=== PATIENT | male | born 1965 | race Two or more races ===

== ENCOUNTER 2022-03-26 02:25 | Inpatient (IN) | payer MEDICAID ==
[~2022-03-26] VITALS: Ht 170.2 cm; Wt 124.9 kg
[2022-03-26] MEDS ORDERED: SODIUM CHLORIDE 0.9% 1,000 ML IV ONE (03:30)
[2022-03-26 03:41] LABS: Basophils # (auto) 0.4 10 ^3/uL (0-0.2); Basophils % (auto) 3.9 % (0.0-2.0); Eosinophils # (auto) 0.1 10 ^3/uL (0-0.8); Eosinophils % (auto) 0.9 % (0.0-7.0); Hematocrit 30.4 % (41.0-53.0); Hemoglobin 9.9 g/dL (13.5-17.5); Lymphocytes # (auto) 0.7 10 ^3/uL (0.4-5.4); Lymphocytes % (auto) 6.5 % (10.0-50.0); Mean Corpuscular Hemoglobin 27.4 pg (28.0-32.0); Mean Corpuscular Hgb Conc. 32.6 g/dL (32.0-36.0); Monocytes # (auto) 0.8 10 ^3/uL (0-1.3); Monocytes % (auto) 7.6 % (0.0-12.0); Neutrophils # (auto) 8.3 10 ^3/uL (1.6-8.6); Neutrophils % (auto) 81.1 % (37.0-80.0); Nucleated Red Blood Cells % 0.2 %; Red Blood Cells 3.63 10^6/uL (4.5-5.90); Red Cell Distribution Width 18.8 % (11.8-14.3); White Blood Cell 10.2 10^3/uL (4.4-10.8)
[2022-03-26 04:02] LABS: Albumin 2.9 g/dL (3.4-5.0); Calcium 9.5 mg/dL (8.5-10.1); Potassium 4.4 mmol/L (3.5-5.1)
[2022-03-26 04:05] LABS: BUN/Creatinine Ratio 14.3; Bilirubin, Total 0.6 mg/dL (0.2-1.0)
[2022-03-26 06:57] LABS: Urine Bacteria NONE SEEN /hpf (None Seen); Urine Blood Negative /uL (Negative); Urine Hyaline Cast MOD /lpf (0 - 2); Urine Specific Gravity 1.016 (1.001-1.035); Urine WBC 3 /hpf (0 - 3)
[2022-03-26] MEDS ORDERED: MORPHINE SULFATE INJ 2 MG/ml SYRG IV PRN (07:45)
[2022-03-26] MEDS ORDERED: DEXTROSE (50%) 50ML SYRG IV PRN (07:45)
[2022-03-26] MEDS ORDERED: ONDANSETRON HCL 4 MG/2 ML VIAL IV PRN (07:45)
[2022-03-26] MEDS ORDERED: NITROGLYCERIN 0.4 MG SL TAB SL PRN (07:45)
[2022-03-26] MEDS ORDERED: ACETAMINOPHEN 325 MG TAB PO PRN (07:45)
[2022-03-26] MEDS ORDERED: DOCUSATE SOD 100 MG CAP PO PRN (07:45)
[2022-03-26] MEDS ORDERED: SODIUM CHLORIDE 0.9% 1,000 ML IV SCH (07:45)
[2022-03-26] MEDS: PIPERACILLIN-TAZOB 2.25GM 50 ML IV SCH ×2 (09:11→17:24)
[2022-03-26] MEDS: PANTOPRAZOLE 40 MG/10 ML VIAL INJ IV SCH (10:48)
[2022-03-26] MEDS: HEPARIN SODIUM (PORCINE) 5000 UNITS/ML 1ML VIAL SC SCH ×2 (10:51→22:29)
[2022-03-26] MEDS: InsuLIN REG 1unit/0.01ml Soln (100units/ml) SC SCH ×3 (12:19→22:00)
[2022-03-26] MEDS: ACCU-CHEK COMFORT CURVE STRIP VI SCH ×3 (12:19→22:07)
[2022-03-26] MEDS: SODIUM CHLORIDE 0.9% 1,000 ML IV SCH ×2 (13:35→22:28)
[2022-03-26 13:39] LABS: Albumin 2.7 g/dL (3.4-5.0); Calcium 9.3 mg/dL (8.5-10.1); Potassium 4.1 mmol/L (3.5-5.1)
[2022-03-26 13:43] LABS: BUN/Creatinine Ratio 15.9; Bilirubin, Total 0.6 mg/dL (0.2-1.0); Total Protein 6.7 g/dL (6.4-8.2)
[2022-03-26 17:00] LABS: Alcohol, Urine < 3.0 mg/dL (0-10); Amphetamine Screen, Urine NEGATIVE (NEGATIVE); Barbiturate Scree,Urine NEGATIVE (NEGATIVE); Benzodiazephine Screen, Urine POSITIVE (NEGATIVE); Cannabinoid Screen, Urine NEGATIVE (NEGATIVE); Cocaine Screen, Urine NEGATIVE (NEGATIVE); Opiate Scree,Urine NEGATIVE (NEGATIVE); Phencyclidine Screen, Urine NEGATIVE (NEGATIVE)
[2022-03-27] MEDS: PIPERACILLIN-TAZOB 2.25GM 50 ML IV SCH ×3 (02:30→17:37)
[2022-03-27] MEDS: SODIUM CHLORIDE 0.9% 1,000 ML IV SCH ×3 (02:30→23:29)
[2022-03-27] MEDS: InsuLIN REG 1unit/0.01ml Soln (100units/ml) SC SCH ×4 (07:00→21:59)
[2022-03-27 07:51] LABS: Basophils # (auto) 0.1 10 ^3/uL (0-0.2); Basophils % (auto) 0.9 % (0.0-2.0); Eosinophils # (auto) 0.1 10 ^3/uL (0-0.8); Eosinophils % (auto) 1.1 % (0.0-7.0); Hematocrit 29.9 % (41.0-53.0); Hemoglobin 9.7 g/dL (13.5-17.5); Lymphocytes # (auto) 0.6 10 ^3/uL (0.4-5.4); Lymphocytes % (auto) 7.5 % (10.0-50.0); Mean Corpuscular Hemoglobin 27.8 pg (28.0-32.0); Mean Corpuscular Hgb Conc. 32.5 g/dL (32.0-36.0); Mean Corpuscular Volume 85.7 fL (80.0-100.0); Monocytes % (auto) 11.4 % (0.0-12.0); Neutrophils # (auto) 6.7 10 ^3/uL (1.6-8.6); Neutrophils % (auto) 79.1 % (37.0-80.0); Nucleated Red Blood Cells % 0.2 %; Red Blood Cells 3.48 10^6/uL (4.5-5.90); Red Cell Distribution Width 19.2 % (11.8-14.3); White Blood Cell 8.5 10^3/uL (4.4-10.8)
[2022-03-27] MEDS: ACCU-CHEK COMFORT CURVE STRIP VI SCH ×4 (07:55→21:57)
[2022-03-27 08:09] LABS: Potassium 3.9 mmol/L (3.5-5.1)
[2022-03-27 08:17] LABS: Albumin 2.6 g/dL (3.4-5.0); BUN/Creatinine Ratio 18.6; Bilirubin, Total 0.6 mg/dL (0.2-1.0); Calcium 9.4 mg/dL (8.5-10.1); Total Protein 6.6 g/dL (6.4-8.2)
[2022-03-27] MEDS: PANTOPRAZOLE 40 MG/10 ML VIAL INJ IV SCH (10:20)
[2022-03-27] MEDS: HEPARIN SODIUM (PORCINE) 5000 UNITS/ML 1ML VIAL SC SCH ×2 (10:25→22:01)
[2022-03-27] MEDS: HYDROcodone-ACET 5/325MG TAB PO PRN (13:36)
[2022-03-27 13:40] VITALS: BP 106/63
[2022-03-27] MEDS ORDERED: FURO40TA4 PO (14:13)
[2022-03-27] MEDS ORDERED: ZIPR60CA7 PO (14:13)
[2022-03-27] MEDS ORDERED: CLOB0.059 TOP (14:13)
[2022-03-27] MEDS ORDERED: ESCI-34 PO (14:13)
[2022-03-27] MEDS ORDERED: SPIR50TA5 PO (14:13)
[2022-03-27] MEDS ORDERED: METH500T22 PO (14:13)
[2022-03-27] MEDS ORDERED: KETO2SHA5 TOP (14:13)
[2022-03-27] MEDS ORDERED: POTA1TAB4 (14:13)
[2022-03-27] MEDS ORDERED: ASPI-325 PO (14:13)
[2022-03-27] MEDS ORDERED: METO2.5T PO (14:13)
[2022-03-27] MEDS ORDERED: ISOS1TAB28 PO (14:13)
[2022-03-27] MEDS ORDERED: GABA300C10 PO (14:13)
[2022-03-27] MEDS ORDERED: CELE1CAP8 PO (14:13)
[2022-03-27] MEDS ORDERED: LIDO5CRE14 TOP (14:13)
[2022-03-27] MEDS ORDERED: ACET-6 PO (14:13)
[2022-03-27] MEDS ORDERED: ALLO100T PO (14:13)
[2022-03-27] MEDS ORDERED: NITR0.4D11 (14:13)
[2022-03-27] MEDS ORDERED: ZIPR60CA PO (14:13)
[2022-03-27] MEDS ORDERED: FAMO-12 PO (14:13)
[2022-03-27] MEDS ORDERED: TAMS0.4C36 PO (14:13)
[2022-03-27] MEDS ORDERED: ALPRTAB PO (14:13)
[2022-03-27] MEDS ORDERED: TRAZ100T3 PO (14:13)
[2022-03-27] MEDS ORDERED: CARV6.2551 PO (14:13)
[2022-03-27 16:29] VITALS: BP 101/61
[2022-03-27 22:30] VITALS: BP 96/52
[2022-03-27] MEDS: NYSTATIN TOPICAL POWDER 15GM TOP SCH (23:10)
[2022-03-28] MEDS: PIPERACILLIN-TAZOB 2.25GM 50 ML IV SCH ×3 (00:46→17:06)
[2022-03-28] MEDS: SODIUM CHLORIDE 0.9% 1,000 ML IV SCH ×3 (05:00→21:00)
[2022-03-28 05:05] VITALS: BP 99/37
[2022-03-28] MEDS: ACCU-CHEK COMFORT CURVE STRIP VI SCH ×4 (06:37→22:01)
[2022-03-28] MEDS: InsuLIN REG 1unit/0.01ml Soln (100units/ml) SC SCH ×4 (06:38→22:00)
[2022-03-28 08:52] LABS: Potassium 3.9 mmol/L (3.5-5.1)
[2022-03-28 09:11] VITALS: BP 101/38
[2022-03-28 09:14] LABS: BUN/Creatinine Ratio 21.9; Calcium 9.4 mg/dL (8.5-10.1)
[2022-03-28] MEDS: PANTOPRAZOLE 40 MG/10 ML VIAL INJ IV SCH (09:18)
[2022-03-28] MEDS: HEPARIN SODIUM (PORCINE) 5000 UNITS/ML 1ML VIAL SC SCH ×2 (09:19→22:02)
[2022-03-28] MEDS: NYSTATIN TOPICAL POWDER 15GM TOP SCH ×2 (10:33→22:01)
[2022-03-28 12:49] VITALS: BP 103/31
[2022-03-28 16:58] VITALS: BP 106/53
[2022-03-28] MEDS: HYDROcodone-ACET 5/325MG TAB PO PRN (17:05)
[2022-03-28 22:00] VITALS: BP 91/42
[2022-03-29] MEDS: PIPERACILLIN-TAZOB 2.25GM 50 ML IV SCH ×3 (00:48→17:42)
[2022-03-29] MEDS: SODIUM CHLORIDE 0.9% 1,000 ML IV SCH ×2 (04:11→17:44)
[2022-03-29 05:00] VITALS: BP 99/59
[2022-03-29] MEDS: ACCU-CHEK COMFORT CURVE STRIP VI SCH ×4 (06:29→22:22)
[2022-03-29] MEDS: InsuLIN REG 1unit/0.01ml Soln (100units/ml) SC SCH ×4 (06:30→22:00)
[2022-03-29 09:00] VITALS: BP 95/59
[2022-03-29] MEDS: PANTOPRAZOLE 40 MG/10 ML VIAL INJ IV SCH (10:53)
[2022-03-29] MEDS: HEPARIN SODIUM (PORCINE) 5000 UNITS/ML 1ML VIAL SC SCH ×2 (10:53→22:22)
[2022-03-29] MEDS: NYSTATIN TOPICAL POWDER 15GM TOP SCH ×2 (10:54→22:21)
[2022-03-29 13:03] VITALS: BP 105/63
[2022-03-29] MEDS ORDERED: BUMETANIDE 2.5mg/10ml (0.25 mg/ml) INJ IV ONE (14:30)
[2022-03-29 16:30] VITALS: BP 96/58
[2022-03-29 17:31] LABS: BUN/Creatinine Ratio 34.9; Calcium 9.7 mg/dL (8.5-10.1); Potassium 3.6 mmol/L (3.5-5.1)
[2022-03-29 22:00] VITALS: BP 110/60
[2022-03-29] MEDS: HYDROcodone-ACET 5/325MG TAB PO PRN (22:23)
[2022-03-30] MEDS: PIPERACILLIN-TAZOB 2.25GM 50 ML IV SCH ×2 (01:01→09:28)
[2022-03-30 05:00] VITALS: BP 99/44
[2022-03-30] MEDS: ACCU-CHEK COMFORT CURVE STRIP VI SCH ×4 (06:33→22:13)
[2022-03-30] MEDS: InsuLIN REG 1unit/0.01ml Soln (100units/ml) SC SCH ×4 (06:33→22:00)
[2022-03-30 08:05] VITALS: BP 105/68
[2022-03-30] MEDS: PANTOPRAZOLE 40 MG/10 ML VIAL INJ IV SCH (09:34)
[2022-03-30] MEDS: HYDROcodone-ACET 5/325MG TAB PO PRN ×3 (09:36→21:52)
[2022-03-30] MEDS: HEPARIN SODIUM (PORCINE) 5000 UNITS/ML 1ML VIAL SC SCH ×2 (09:46→21:52)
[2022-03-30 10:46] LABS: Basophils # (auto) 0.1 10 ^3/uL (0-0.2); Basophils % (auto) 0.8 % (0.0-2.0); Eosinophils # (auto) 0.1 10 ^3/uL (0-0.8); Eosinophils % (auto) 1.4 % (0.0-7.0); Hematocrit 29.5 % (41.0-53.0); Hemoglobin 9.6 g/dL (13.5-17.5); Lymphocytes # (auto) 0.5 10 ^3/uL (0.4-5.4); Lymphocytes % (auto) 4.7 % (10.0-50.0); Mean Corpuscular Hemoglobin 27.4 pg (28.0-32.0); Mean Corpuscular Hgb Conc. 32.5 g/dL (32.0-36.0); Mean Corpuscular Volume 84.3 fL (80.0-100.0); Monocytes # (auto) 0.9 10 ^3/uL (0-1.3); Monocytes % (auto) 9.1 % (0.0-12.0); Neutrophils # (auto) 8.2 10 ^3/uL (1.6-8.6); Nucleated Red Blood Cells % 0.1 %; Red Cell Distribution Width 19.1 % (11.8-14.3); White Blood Cell 9.8 10^3/uL (4.4-10.8)
[2022-03-30 11:26] LABS: BUN/Creatinine Ratio 38.1
[2022-03-30 11:38] LABS: Calcium 9.7 mg/dL (8.5-10.1)
[2022-03-30] MEDS: NYSTATIN TOPICAL POWDER 15GM TOP SCH ×2 (12:00→22:13)
[2022-03-30 12:05] VITALS: BP 99/56
[2022-03-30] MEDS: SODIUM CHLORIDE 0.9% 1,000 ML IV SCH (14:30)
[2022-03-30 16:00] VITALS: BP 115/56
[2022-03-30] MEDS: BUMETANIDE 2.5mg/10ml (0.25 mg/ml) INJ IV SCH (17:40)
[2022-03-30 22:00] VITALS: BP 105/64
[2022-03-31 05:00] VITALS: BP 108/68
[2022-03-31] MEDS: ACCU-CHEK COMFORT CURVE STRIP VI SCH ×4 (06:31→21:04)
[2022-03-31] MEDS: InsuLIN REG 1unit/0.01ml Soln (100units/ml) SC SCH ×4 (06:31→21:03)
[2022-03-31] MEDS: BUMETANIDE 2.5mg/10ml (0.25 mg/ml) INJ IV SCH ×2 (06:31→21:03)
[2022-03-31 08:59] VITALS: BP 118/62
[2022-03-31] MEDS: NYSTATIN TOPICAL POWDER 15GM TOP SCH ×2 (10:00→21:04)
[2022-03-31] MEDS: HEPARIN SODIUM (PORCINE) 5000 UNITS/ML 1ML VIAL SC SCH ×2 (10:00→21:10)
[2022-03-31 13:00] VITALS: BP 100/55
[2022-03-31 16:57] VITALS: BP 106/61
[2022-03-31] MEDS: HYDROcodone-ACET 5/325MG TAB PO PRN (21:04)
[2022-03-31 22:00] VITALS: BP 104/69
[2022-04-01 05:00] VITALS: BP 113/65
[2022-04-01] MEDS: InsuLIN REG 1unit/0.01ml Soln (100units/ml) SC SCH ×4 (05:49→21:07)
[2022-04-01] MEDS: ACCU-CHEK COMFORT CURVE STRIP VI SCH ×4 (05:50→21:07)
[2022-04-01] MEDS: BUMETANIDE 2.5mg/10ml (0.25 mg/ml) INJ IV SCH ×3 (06:15→17:45)
[2022-04-01 06:48] LABS: Albumin 2.8 g/dL (3.4-5.0); Calcium 9.7 mg/dL (8.5-10.1); Magnesium 1.9 mg/dL (1.6-2.6)
[2022-04-01 06:49] LABS: BUN/Creatinine Ratio 44.5
[2022-04-01 06:52] LABS: Bilirubin, Total 0.8 mg/dL (0.2-1.0); Phosphorus 2.4 mg/dL (2.5-4.90); Total Protein 7.1 g/dL (6.4-8.2)
[2022-04-01 07:10] LABS: Potassium 2.8 mmol/L (3.5-5.1)
[2022-04-01] MEDS ORDERED: POTASSIUM CHLORIDE 40 MEQ, LIDOCAINE 1% (LOCAL ANESTH.) 4 ML in SODIUM CHL 0.9% 250 ML IV ONE (08:45)
[2022-04-01 09:00] VITALS: BP 112/66
[2022-04-01] MEDS: HYDROcodone-ACET 5/325MG TAB PO PRN ×2 (09:28→21:09)
[2022-04-01] MEDS: NYSTATIN TOPICAL POWDER 15GM TOP SCH ×2 (09:28→21:08)
[2022-04-01] MEDS: HEPARIN SODIUM (PORCINE) 5000 UNITS/ML 1ML VIAL SC SCH ×2 (10:00→21:12)
[2022-04-01] MEDS ORDERED: POTASSIUM CHL 20 Meq TABLET PO ONE (10:30)
[2022-04-01] MEDS ORDERED: NYS15PW TOP (10:38)
[2022-04-01 13:00] VITALS: BP 141/69
[2022-04-01 16:55] VITALS: BP 106/67
[2022-04-01] MEDS ORDERED: SPIRONOLACTONE 25 MG TAB PO ONE (17:15)
[2022-04-01] MEDS ORDERED: BUMETANIDE 2.5mg/10ml (0.25 mg/ml) INJ IV SCH (18:00)
[2022-04-01 22:00] VITALS: BP 110/60
[2022-04-02 05:00] VITALS: BP 104/56
[2022-04-02] MEDS: InsuLIN REG 1unit/0.01ml Soln (100units/ml) SC SCH ×2 (05:45→11:30)
[2022-04-02] MEDS: ACCU-CHEK COMFORT CURVE STRIP VI SCH ×2 (05:46→11:53)
[2022-04-02] MEDS: BUMETANIDE 2.5mg/10ml (0.25 mg/ml) INJ IV SCH (05:47)
[2022-04-02 06:00] VITALS: BP 105/55
[2022-04-02 09:00] VITALS: BP 105/55
[2022-04-02] MEDS: HEPARIN SODIUM (PORCINE) 5000 UNITS/ML 1ML VIAL SC SCH (09:00)
[2022-04-02] MEDS: NYSTATIN TOPICAL POWDER 15GM TOP SCH (09:00)
[2022-04-02 09:13] LABS: Albumin 3.1 g/dL (3.4-5.0); BUN/Creatinine Ratio 39.3; Calcium 9.5 mg/dL (8.5-10.1); Potassium 3.1 mmol/L (3.5-5.1)
[2022-04-02 09:15] LABS: Total Protein 6.6 g/dL (6.4-8.2)
[2022-04-02] MEDS ORDERED: POTASSIUM CHL 20 Meq TABLET PO ONE (09:30)
[2022-04-02 13:00] VITALS: BP 110/64
[2022-04-02] MEDS ORDERED: BUM1T PO (13:26)
[2022-04-02] MEDS ORDERED: POTA1TAB61 PO (13:30)
[2022-04-02 16:49] VITALS: BP 122/76
== END 2022-04-02 17:50 | disposition home health service (06) | DRG 207 ==
LOC: ER 02:25 → EDBD 02:25 → TELE 07:35 → TELE-E-ADS 03-27 12:40 → TELE-WESTW 03-27 15:49
PROVIDERS: ADMIT Nurse Practitioner; ATTEND Nurse Practitioner
DX: I95.9 Hypotension, unspecified (principal); N17.0 Acute kidney failure with tubular necrosis; I50.23 Acute on chronic systolic (congestive) heart failure; E87.1 Hypo-osmolality and hyponatremia; E11.22 Type 2 diabetes mellitus with diabetic chronic kidney disease; L03.90 Cellulitis, unspecified; E11.65 Type 2 diabetes mellitus with hyperglycemia; E66.01 Morbid (severe) obesity due to excess calories; I13.0 Hypertensive heart and chronic kidney disease with heart failure and stage 1 through stage 4 chronic kidney disease, or unspecified chronic kidney disease; Z20.822 Contact with and (suspected) exposure to COVID-19; M10.9 Gout, unspecified; N18.32 Chronic kidney disease, stage 3b; E87.6 Hypokalemia; E78.5 Hyperlipidemia, unspecified; F17.210 Nicotine dependence, cigarettes, uncomplicated; J44.9 Chronic obstructive pulmonary disease, unspecified; Z68.42 Body mass index [BMI] 45.0-49.9, adult
CPT/HCPCS: 36415; 71045; 71250; 76775; 80048; 80053; 80307; 81001; 82962; 83036; 83605; 83690; 83735; 84100; 85025; 87040; 87426; 93005; 93306; 96360; 96361; C9113; G0378; J1815; J2001; J2543

== ENCOUNTER 2022-04-05 17:48 | Inpatient (IN) | payer MEDICAID ==
[~2022-04-05] VITALS: Ht 170.2 cm; Wt 126.0 kg
[~2022-04-05 17:48] MED LIST: ALLO100T PO; ASPI-325 PO; BUM1T PO; ISOS1TAB28 PO; NYS15PW TOP; POTA1TAB61 PO; TAMS0.4C36 PO; TRAZ100T3 PO; ZIPR60CA7 PO
[2022-04-05 22:20] LABS: Basophils # (auto) 0.1 10 ^3/uL (0-0.2); Basophils % (auto) 0.9 % (0.0-2.0); Eosinophils # (auto) 0 10 ^3/uL (0-0.8); Lymphocytes # (auto) 1.1 10 ^3/uL (0.4-5.4); Monocytes # (auto) 1.1 10 ^3/uL (0-1.3); Nucleated Red Blood Cells % 0.3 %; Red Cell Distribution Width 19.4 % (11.8-14.3)
[2022-04-05 22:21] LABS: Eosinophils % (auto) 0.2 % (0.0-7.0); Hematocrit 35.1 % (41.0-53.0); Hemoglobin 11.1 g/dL (13.5-17.5); Lymphocytes % (auto) 7.5 % (10.0-50.0); Mean Corpuscular Hemoglobin 26.5 pg (28.0-32.0); Mean Corpuscular Hgb Conc. 31.5 g/dL (32.0-36.0); Monocytes % (auto) 7.2 % (0.0-12.0); Neutrophils # (auto) 12.4 10 ^3/uL (1.6-8.6); Neutrophils % (auto) 84.2 % (37.0-80.0); Red Blood Cells 4.18 10^6/uL (4.5-5.90); White Blood Cell 14.7 10^3/uL (4.4-10.8)
[2022-04-05 22:26] LABS: Albumin 2.9 g/dL (3.4-5.0); BUN/Creatinine Ratio 35.3; Calcium 8.9 mg/dL (8.5-10.1); Potassium 3.8 mmol/L (3.5-5.1)
[2022-04-05 22:29] LABS: Bilirubin, Total 1.1 mg/dL (0.2-1.0)
[2022-04-06] MEDS ORDERED: ACETAMINOPHEN 325 MG TAB PO PRN
[2022-04-06] MEDS ORDERED: ONDANSETRON HCL 4 MG/2 ML VIAL IV PRN
[2022-04-06] MEDS ORDERED: BUME1TAB3 PO (01:55)
[2022-04-06 05:11] LABS: Hemoglobin 10.3 g/dL (13.5-17.5)
[2022-04-06 05:15] LABS: Hematocrit 32.8 % (41.0-53.0); Mean Corpuscular Hemoglobin 26.3 pg (28.0-32.0); Mean Corpuscular Hgb Conc. 31.5 g/dL (32.0-36.0); Mean Corpuscular Volume 83.6 fL (80.0-100.0); Red Blood Cells 3.93 10^6/uL (4.5-5.90); Red Cell Distribution Width 19.8 % (11.8-14.3)
[2022-04-06 05:16] LABS: Albumin 2.9 g/dL (3.4-5.0); Calcium 8.5 mg/dL (8.5-10.1); Potassium 3.9 mmol/L (3.5-5.1)
[2022-04-06 05:20] LABS: BUN/Creatinine Ratio 41.1; Bilirubin, Total 1.1 mg/dL (0.2-1.0); Total Protein 6.6 g/dL (6.4-8.2)
[2022-04-06 05:52] LABS: Basophils % (manual) 0 (0.0-2.0); Blast Cells 0; Eosinophils % (manual) 0 (0-7); Metamyelocytes % 0; Myelocytes % 0; Promyelocytes % 0; Reactive Lymphocytes 0
[2022-04-06 07:23] LABS: Band Neutrophils % (manual) 1; Lymphocytes % (manual) 12 (10.0-50.0); Monocytes % (manual) 9 (0-12)
[2022-04-06] MEDS ORDERED: ASPirin 325 MG TAB PO ONE (09:00)
[2022-04-06 09:13] LABS: Basophils # (auto) 0 10 ^3/uL (0-0.2); Eosinophils # (auto) 0.1 10 ^3/uL (0-0.8); Monocytes # (auto) 0.9 10 ^3/uL (0-1.3); Red Cell Distribution Width 19.5 % (11.8-14.3)
[2022-04-06 09:14] LABS: Eosinophils % (auto) 0.7 % (0.0-7.0); Hematocrit 34.9 % (41.0-53.0); Hemoglobin 10.9 g/dL (13.5-17.5); Lymphocytes % (auto) 7.3 % (10.0-50.0); Mean Corpuscular Hemoglobin 26.4 pg (28.0-32.0); Mean Corpuscular Hgb Conc. 31.4 g/dL (32.0-36.0); Mean Corpuscular Volume 84.1 fL (80.0-100.0); Neutrophils # (auto) 11.2 10 ^3/uL (1.6-8.6); Nucleated Red Blood Cells % 0.2 %; Red Blood Cells 4.15 10^6/uL (4.5-5.90); White Blood Cell 13.2 10^3/uL (4.4-10.8)
[2022-04-06] MEDS ORDERED: HEPARIN SODIUM (PORCINE) 5000 UNITS/ML 1ML VIAL IV ONE ×2 (09:45→11:00)
[2022-04-06] MEDS ORDERED: HEPARIN DRIP/D5W 100UNITS/ML 250 ML IV SCH ×2 (09:45→11:00)
[2022-04-06 12:18] LABS: INR 1.48 (0.9-1.15)
[2022-04-06 13:10] LABS: Hepatitis B Surface Antibody Positive (Negative)
[2022-04-06 13:48] LABS: Hepatitis A Total Antibody Negative (Negative)
[2022-04-06 14:01] LABS: Hepatitis C Antibody Negative (Negative)
[2022-04-06 17:21] LABS: INR 1.49 (0.9-1.15); Partial Thromboplastin Time 37.3 sec (24.6-33.4)
[2022-04-06] MEDS ORDERED: SPIR50TA5 PO (17:39)
[2022-04-06] MEDS ORDERED: SODIUM CHLORIDE 0.9% 1,000 ML IV SCH (17:45)
[2022-04-06] MEDS: HEPARIN DRIP/D5W 100UNITS/ML 250 ML IV SCH (17:52)
[2022-04-06] MEDS ORDERED: BUMETANIDE 1 MG TAB PO SCH (18:00)
[2022-04-06] MEDS ORDERED: LORazepam 2MG/ML-1ML VIAL IV PRN (21:00)
[2022-04-06 23:34] VITALS: BP 111/66
[2022-04-07] VITALS (8 sets, daily range): BP systolic 93–114; BP diastolic 53–68
[2022-04-07] MEDS ORDERED: SODIUM CHLORIDE 0.9% 1,000 ML IV SCH
[2022-04-07 00:51] LABS: INR 1.46 (0.9-1.15); Partial Thromboplastin Time 41.3 sec (24.6-33.4)
[2022-04-07] MEDS: HEPARIN DRIP/D5W 100UNITS/ML 250 ML IV SCH (06:05)
[2022-04-07] MEDS ORDERED: NITR0.4S29 SL (06:47)
[2022-04-07] MEDS ORDERED: FLUT110A IN (06:47)
[2022-04-07] MEDS ORDERED: POTA10TA51 PO (06:48)
[2022-04-07] MEDS ORDERED: MYC15TP TOP (06:48)
[2022-04-07 08:39] LABS: Basophils # (auto) 0.1 10 ^3/uL (0-0.2); Eosinophils # (auto) 0.1 10 ^3/uL (0-0.8); Mean Corpuscular Volume 83.9 fL (80.0-100.0); Neutrophils # (auto) 9.3 10 ^3/uL (1.6-8.6)
[2022-04-07 08:40] LABS: Eosinophils % (auto) 0.6 % (0.0-7.0); Hematocrit 32.7 % (41.0-53.0); Hemoglobin 10.1 g/dL (13.5-17.5); Lymphocytes % (auto) 8.9 % (10.0-50.0); Monocytes % (auto) 8.7 % (0.0-12.0); Neutrophils % (auto) 80.8 % (37.0-80.0); Nucleated Red Blood Cells % 0.7 %; Red Cell Distribution Width 19.8 % (11.8-14.3); White Blood Cell 11.6 10^3/uL (4.4-10.8)
[2022-04-07 08:56] LABS: INR 1.42 (0.9-1.15); Partial Thromboplastin Time 40.8 sec (24.6-33.4)
[2022-04-07 09:13] LABS: Potassium 3.3 mmol/L (3.5-5.1)
[2022-04-07 09:20] LABS: BUN/Creatinine Ratio 41.4; Bilirubin, Total 1.1 mg/dL (0.2-1.0); Calcium 8.9 mg/dL (8.5-10.1); Total Protein 6.6 g/dL (6.4-8.2)
[2022-04-07] MEDS: PANTOPRAZOLE 40 MG/10 ML VIAL INJ IV SCH (10:00)
[2022-04-07] MEDS: ASPirin 81 mg TAB PO SCH (10:00)
[2022-04-07] MEDS ORDERED: ANGIOMAX 250 MG VIAL IV ONE (10:35)
[2022-04-07] MEDS ORDERED: VERAPAMIL 2.5MG/ML INJ 2ML VIAL IV ONE (10:36)
[2022-04-07] MEDS ORDERED: fentaNYL CITRATE 100 MCG/2 ML VL ONE (10:36)
[2022-04-07] MEDS ORDERED: IODIXANOL 320MG/ML 100ML BTL IV ONE (10:36)
[2022-04-07] MEDS ORDERED: HEPARIN SODIUM (PORCINE) 5000 UNITS/ML 1ML VIAL ONE (10:36)
[2022-04-07] MEDS ORDERED: SODIUM CHL 0.9% 50 ML ONE (10:36)
[2022-04-07] MEDS ORDERED: MIDAZOLAM HCL 2MG/2ML 2ml VIAL (1mg/ml) ONE (10:36)
[2022-04-07] MEDS ORDERED: ATROPINE SULF 1 MG/10ml SYR ONE (11:23)
[2022-04-07] MEDS ORDERED: EPINEPHrine HCL 1 MG/10 ML SYRG ONE (11:23)
[2022-04-07] MEDS ORDERED: ASPirin 325 MG TAB ONE (11:45)
[2022-04-07] MEDS ORDERED: TICAGRELOR 90 MG TAB ONE (11:45)
[2022-04-07] MEDS ORDERED: TICAGRELOR 90 MG TAB PO SCH (22:00)
[2022-04-07] MEDS: SACUBITRIL-VALSARTAN 24mg/26mg TAB PO SCH (22:02)
[2022-04-07] MEDS: TICAGRELOR 90 MG TAB PO SCH (22:02)
[2022-04-07] MEDS: ATORVASTATIN 20 MG TAB PO SCH (22:03)
[2022-04-07] MEDS: CARVEDILOL 3.125 MG TAB PO SCH (22:03)
[2022-04-08 05:00] VITALS: BP 100/62
[2022-04-08 07:01] LABS: Albumin 2.9 g/dL (3.4-5.0); Calcium 8.6 mg/dL (8.5-10.1)
[2022-04-08 07:04] LABS: BUN/Creatinine Ratio 35.8; Bilirubin, Total 1.3 mg/dL (0.2-1.0); Total Protein 6.6 g/dL (6.4-8.2)
[2022-04-08 07:28] LABS: Basophils # (auto) 0.1 10 ^3/uL (0-0.2); Basophils % (auto) 0.5 % (0.0-2.0); Eosinophils # (auto) 0.1 10 ^3/uL (0-0.8); Eosinophils % (auto) 1.1 % (0.0-7.0); Hematocrit 32.7 % (41.0-53.0); Hemoglobin 10.2 g/dL (13.5-17.5); Lymphocytes # (auto) 1.1 10 ^3/uL (0.4-5.4); Lymphocytes % (auto) 9.7 % (10.0-50.0); Mean Corpuscular Hemoglobin 26.1 pg (28.0-32.0); Mean Corpuscular Hgb Conc. 31.3 g/dL (32.0-36.0); Mean Corpuscular Volume 83.3 fL (80.0-100.0); Monocytes # (auto) 0.9 10 ^3/uL (0-1.3); Monocytes % (auto) 8.2 % (0.0-12.0); Neutrophils # (auto) 9.3 10 ^3/uL (1.6-8.6); Neutrophils % (auto) 80.5 % (37.0-80.0); Nucleated Red Blood Cells % 0.7 %; Red Blood Cells 3.92 10^6/uL (4.5-5.90); Red Cell Distribution Width 19.5 % (11.8-14.3); White Blood Cell 11.5 10^3/uL (4.4-10.8)
[2022-04-08 08:00] VITALS: BP 97/59
[2022-04-08] MEDS: TICAGRELOR 90 MG TAB PO SCH ×2 (09:03→22:08)
[2022-04-08] MEDS: PANTOPRAZOLE 40 MG/10 ML VIAL INJ IV SCH (09:03)
[2022-04-08] MEDS: ASPirin 81 mg TAB PO SCH (09:03)
[2022-04-08] MEDS: CARVEDILOL 3.125 MG TAB PO SCH ×2 (09:04→22:00)
[2022-04-08] MEDS: SACUBITRIL-VALSARTAN 24mg/26mg TAB PO SCH ×2 (09:05→22:07)
[2022-04-08] MEDS ORDERED: HALOPERIDOL 1 MG TAB PO PRN (11:15)
[2022-04-08] MEDS ORDERED: ALPRAZolam 0.5 MG TAB PO ONE (11:15)
[2022-04-08 12:01] VITALS: BP 105/57
[2022-04-08] MEDS: SERTRALINE HCL 50 MG TAB PO SCH (12:12)
[2022-04-08] MEDS: PIPERACILLIN-TAZOB 3.375GM 100 ML IV SCH ×2 (14:00→22:08)
[2022-04-08] MEDS ORDERED: POTASSIUM CHL 20 Meq TABLET PO ONE (15:15)
[2022-04-08] MEDS ORDERED: BUMETANIDE 2.5mg/10ml (0.25 mg/ml) INJ IV ONE ×2 (15:15→16:00)
[2022-04-08 16:00] VITALS: BP 100/52
[2022-04-08 22:00] VITALS: BP 90/69
[2022-04-08] MEDS: ATORVASTATIN 20 MG TAB PO SCH (22:07)
[2022-04-09 05:00] VITALS: BP 108/54
[2022-04-09] MEDS: PIPERACILLIN-TAZOB 3.375GM 100 ML IV SCH ×3 (05:25→21:42)
[2022-04-09 09:00] VITALS: BP 106/64
[2022-04-09] MEDS: PANTOPRAZOLE 40 MG/10 ML VIAL INJ IV SCH (09:49)
[2022-04-09] MEDS: SACUBITRIL-VALSARTAN 24mg/26mg TAB PO SCH ×2 (09:50→21:42)
[2022-04-09] MEDS: SERTRALINE HCL 50 MG TAB PO SCH (09:50)
[2022-04-09] MEDS: ASPirin 81 mg TAB PO SCH (09:50)
[2022-04-09] MEDS: TICAGRELOR 90 MG TAB PO SCH ×2 (09:51→21:40)
[2022-04-09] MEDS: CARVEDILOL 3.125 MG TAB PO SCH ×2 (09:52→21:41)
[2022-04-09 13:00] VITALS: BP 87/47
[2022-04-09] MEDS ORDERED: POTASSIUM CHL 20 Meq TABLET PO ONE (14:15)
[2022-04-09] MEDS: BUMETANIDE 1 MG TAB PO SCH ×2 (14:33→17:02)
[2022-04-09] MEDS: HYDROcodone-ACET 10/325MG TAB PO PRN (14:34)
[2022-04-09 17:00] VITALS: BP 106/56
[2022-04-09] MEDS: ATORVASTATIN 20 MG TAB PO SCH (21:42)
[2022-04-09 22:00] VITALS: BP 106/55
[2022-04-10 05:00] VITALS: BP 114/59
[2022-04-10] MEDS: BUMETANIDE 1 MG TAB PO SCH (05:58)
[2022-04-10] MEDS: PIPERACILLIN-TAZOB 3.375GM 100 ML IV SCH ×3 (05:58→21:51)
[2022-04-10] MEDS: PANTOPRAZOLE 40 MG/10 ML VIAL INJ IV SCH (08:40)
[2022-04-10] MEDS: ASPirin 81 mg TAB PO SCH (08:40)
[2022-04-10] MEDS: HYDROcodone-ACET 10/325MG TAB PO PRN (08:41)
[2022-04-10] MEDS: SERTRALINE HCL 50 MG TAB PO SCH (08:41)
[2022-04-10] MEDS: CARVEDILOL 3.125 MG TAB PO SCH ×2 (08:41→22:08)
[2022-04-10] MEDS: TICAGRELOR 90 MG TAB PO SCH ×2 (08:41→21:51)
[2022-04-10] MEDS: SACUBITRIL-VALSARTAN 24mg/26mg TAB PO SCH ×2 (08:50→22:08)
[2022-04-10 09:00] VITALS: BP 105/63
[2022-04-10 09:58] LABS: BUN/Creatinine Ratio 29.2; Potassium 3.4 mmol/L (3.5-5.1)
[2022-04-10] MEDS ORDERED: POTASSIUM CHL 20 Meq TABLET PO ONE (11:30)
[2022-04-10 13:00] VITALS: BP 85/53
[2022-04-10 17:00] VITALS: BP 81/27
[2022-04-10 19:46] VITALS: BP 119/89
[2022-04-10 22:00] VITALS: BP 139/102
[2022-04-10] MEDS: ATORVASTATIN 20 MG TAB PO SCH (22:08)
[2022-04-11] VITALS (8 sets, daily range): BP systolic 76–130; BP diastolic 35–108
[2022-04-11] MEDS: PIPERACILLIN-TAZOB 3.375GM 100 ML IV SCH ×3 (05:49→21:44)
[2022-04-11] MEDS ORDERED: ALBUTEROL SULF 2.5 MG/0.5ML(0.5%) NEB SOLN NEB PRN (09:00)
[2022-04-11] MEDS: PANTOPRAZOLE 40 MG/10 ML VIAL INJ IV SCH (09:05)
[2022-04-11] MEDS: TICAGRELOR 90 MG TAB PO SCH ×2 (09:05→21:44)
[2022-04-11] MEDS: ASPirin 81 mg TAB PO SCH (09:05)
[2022-04-11] MEDS: CARVEDILOL 3.125 MG TAB PO SCH (09:08)
[2022-04-11] MEDS: BUMETANIDE 1 MG TAB PO SCH (09:08)
[2022-04-11] MEDS: SACUBITRIL-VALSARTAN 24mg/26mg TAB PO SCH (09:08)
[2022-04-11] MEDS: SERTRALINE HCL 50 MG TAB PO SCH (09:08)
[2022-04-11] MEDS ORDERED: ALBUTEROL MEDNEB 2.5 mg/3ml NEB ONE (09:11)
[2022-04-11] MEDS ORDERED: ALBUMIN 25% 50 ML IV ONE (10:00)
[2022-04-11 13:00] LABS: Calcium 8.1 mg/dL (8.5-10.1); Potassium 3.5 mmol/L (3.5-5.1)
[2022-04-11 13:02] LABS: BUN/Creatinine Ratio 23.9
[2022-04-11] MEDS: ATORVASTATIN 20 MG TAB PO SCH (21:44)
[2022-04-11] MEDS ORDERED: SACUBITRIL-VALSARTAN 24mg/26mg TAB PO SCH (22:00)
[2022-04-12] VITALS (7 sets, daily range): BP systolic 83–126; BP diastolic 38–74
[2022-04-12] MEDS: PIPERACILLIN-TAZOB 3.375GM 100 ML IV SCH ×3 (05:42→21:35)
[2022-04-12] MEDS: METOPROLOL SUCCINATE XL 50 MG TAB PO SCH (08:50)
[2022-04-12] MEDS: BUMETANIDE 1 MG TAB PO SCH (09:00)
[2022-04-12] MEDS: TICAGRELOR 90 MG TAB PO SCH ×2 (09:00→21:35)
[2022-04-12] MEDS: ASPirin 81 mg TAB PO SCH (09:00)
[2022-04-12] MEDS: SERTRALINE HCL 50 MG TAB PO SCH (09:00)
[2022-04-12] MEDS: PANTOPRAZOLE 40 MG/10 ML VIAL INJ IV SCH (09:00)
[2022-04-12 10:04] LABS: BUN/Creatinine Ratio 25.7; Potassium 3.9 mmol/L (3.5-5.1)
[2022-04-12] MEDS: HYDROcodone-ACET 10/325MG TAB PO PRN (21:32)
[2022-04-12] MEDS: ATORVASTATIN 20 MG TAB PO SCH (21:34)
[2022-04-13 05:00] VITALS: BP 90/46
[2022-04-13] MEDS: PIPERACILLIN-TAZOB 3.375GM 100 ML IV SCH ×3 (05:38→22:38)
[2022-04-13 09:00] VITALS: BP 82/35
[2022-04-13] MEDS: PANTOPRAZOLE 40 MG/10 ML VIAL INJ IV SCH (09:02)
[2022-04-13] MEDS: TICAGRELOR 90 MG TAB PO SCH ×2 (09:02→22:38)
[2022-04-13] MEDS: BUMETANIDE 1 MG TAB PO SCH (09:02)
[2022-04-13] MEDS: ASPirin 81 mg TAB PO SCH (09:02)
[2022-04-13] MEDS: METOPROLOL SUCCINATE XL 50 MG TAB PO SCH ×2 (09:03→13:00)
[2022-04-13] MEDS: SERTRALINE HCL 50 MG TAB PO SCH (09:03)
[2022-04-13] MEDS ORDERED: MIDODRINE HCL 10 MG TAB PO SCH (12:00)
[2022-04-13 13:00] VITALS: BP 99/63
[2022-04-13 16:40] LABS: Calcium 8.9 mg/dL (8.5-10.1); Potassium 3.7 mmol/L (3.5-5.1)
[2022-04-13 16:43] LABS: BUN/Creatinine Ratio 31.3
[2022-04-13 17:00] VITALS: BP 106/58
[2022-04-13] MEDS: MIDODRINE HCL 10 MG TAB PO SCH (18:13)
[2022-04-13] MEDS: HYDROcodone-ACET 10/325MG TAB PO PRN (20:48)
[2022-04-13 22:00] VITALS: BP 95/58
[2022-04-13] MEDS: ATORVASTATIN 20 MG TAB PO SCH (22:38)
[2022-04-14 05:00] VITALS: BP 96/47
[2022-04-14] MEDS: MIDODRINE HCL 10 MG TAB PO SCH ×3 (05:54→17:46)
[2022-04-14] MEDS: PIPERACILLIN-TAZOB 3.375GM 100 ML IV SCH ×3 (05:54→22:01)
[2022-04-14 06:09] LABS: Potassium 3.6 mmol/L (3.5-5.1)
[2022-04-14 06:15] LABS: Albumin 2.8 g/dL (3.4-5.0); Calcium 8.9 mg/dL (8.5-10.1); Total Protein 6.3 g/dL (6.4-8.2)
[2022-04-14 07:22] VITALS: BP 96/47
[2022-04-14 09:00] VITALS: BP 107/54
[2022-04-14] MEDS: SPIRONOLACTONE 25 MG TAB PO SCH (09:44)
[2022-04-14] MEDS: ASPirin 81 mg TAB PO SCH (09:44)
[2022-04-14] MEDS: PANTOPRAZOLE 40 MG/10 ML VIAL INJ IV SCH (09:44)
[2022-04-14] MEDS: SERTRALINE HCL 50 MG TAB PO SCH (09:44)
[2022-04-14] MEDS: BUMETANIDE 1 MG TAB PO SCH (09:45)
[2022-04-14] MEDS: METOPROLOL SUCCINATE XL 50 MG TAB PO SCH (09:45)
[2022-04-14] MEDS: TICAGRELOR 90 MG TAB PO SCH ×2 (09:45→22:01)
[2022-04-14 13:00] VITALS: BP_SYST 101; BP_SYST 102; BP_SYST 111; BP_DIAS 50; BP_DIAS 61; BP_DIAS 65
[2022-04-14 17:07] VITALS: BP 101/61
[2022-04-14 22:00] VITALS: BP 114/53
[2022-04-14] MEDS: ATORVASTATIN 20 MG TAB PO SCH (22:01)
[2022-04-15 04:55] VITALS: BP 119/65
[2022-04-15] MEDS: PIPERACILLIN-TAZOB 3.375GM 100 ML IV SCH ×2 (05:38→13:41)
[2022-04-15] MEDS: MIDODRINE HCL 10 MG TAB PO SCH ×3 (05:39→18:00)
[2022-04-15 05:51] LABS: Potassium 3.5 mmol/L (3.5-5.1)
[2022-04-15 05:52] LABS: BUN/Creatinine Ratio 25.8
[2022-04-15 09:00] VITALS: BP 126/67
[2022-04-15] MEDS: SERTRALINE HCL 50 MG TAB PO SCH (09:32)
[2022-04-15] MEDS: BUMETANIDE 1 MG TAB PO SCH (09:32)
[2022-04-15] MEDS: PANTOPRAZOLE 40 MG/10 ML VIAL INJ IV SCH (09:32)
[2022-04-15] MEDS: ASPirin 81 mg TAB PO SCH (09:32)
[2022-04-15] MEDS: TICAGRELOR 90 MG TAB PO SCH (09:33)
[2022-04-15] MEDS: METOPROLOL SUCCINATE XL 50 MG TAB PO SCH (09:33)
[2022-04-15] MEDS: SPIRONOLACTONE 25 MG TAB PO SCH (09:33)
[2022-04-15 13:00] VITALS: BP 103/58
[2022-04-15] MEDS ORDERED: TICA90TA PO (14:46)
[2022-04-15] MEDS ORDERED: ASPI-325 PO (14:46)
[2022-04-15] MEDS ORDERED: BUM1T PO (14:46)
[2022-04-15] MEDS ORDERED: ATOR20TA50 PO (14:46)
[2022-04-15] MEDS ORDERED: SERT50TA PO (14:46)
[2022-04-15] MEDS ORDERED: MID10T PO (14:46)
[2022-04-15] MEDS ORDERED: SPIR25TA PO (14:46)
[2022-04-15] MEDS ORDERED: METO-6 PO (14:46)
[2022-04-15 16:41] VITALS: BP 120/56
== END 2022-04-15 18:20 | disposition home health service (06) | DRG 174 ==
LOC: EDBD 17:48 → EDUNIT# 17:48 → ER 17:48 → TELE 23:40 → TELE-CENTR 04-06 21:20
PROVIDERS: ADMIT Internal Medicine; ATTEND Internal Medicine
PROC: 027034Z Dilation of Coronary Artery, One Artery with Drug-eluting Intraluminal Device, Percutaneous Approach (ICD-10-PCS; principal; 2022-04-07)
PROC: B211YZZ Fluoroscopy of Multiple Coronary Arteries using Other Contrast (ICD-10-PCS; 2022-04-07)
DX: I21.4 Non-ST elevation (NSTEMI) myocardial infarction (principal); I50.23 Acute on chronic systolic (congestive) heart failure; N17.9 Acute kidney failure, unspecified; E87.1 Hypo-osmolality and hyponatremia; E11.22 Type 2 diabetes mellitus with diabetic chronic kidney disease; I13.0 Hypertensive heart and chronic kidney disease with heart failure and stage 1 through stage 4 chronic kidney disease, or unspecified chronic kidney disease; I95.9 Hypotension, unspecified; E11.65 Type 2 diabetes mellitus with hyperglycemia; E11.51 Type 2 diabetes mellitus with diabetic peripheral angiopathy without gangrene; L03.119 Cellulitis of unspecified part of limb; F17.210 Nicotine dependence, cigarettes, uncomplicated; I25.5 Ischemic cardiomyopathy; J44.9 Chronic obstructive pulmonary disease, unspecified; E66.01 Morbid (severe) obesity due to excess calories; J98.11 Atelectasis; S00.81XA Abrasion of other part of head, initial encounter; I25.10 Atherosclerotic heart disease of native coronary artery without angina pectoris; K74.60 Unspecified cirrhosis of liver; N18.31 Chronic kidney disease, stage 3a; R26.9 Unspecified abnormalities of gait and mobility; R55 Syncope and collapse; R79.89 Other specified abnormal findings of blood chemistry; E78.5 Hyperlipidemia, unspecified; Z20.822 Contact with and (suspected) exposure to COVID-19; M10.9 Gout, unspecified; W19.XXXA Unspecified fall, initial encounter; Y93.89 Activity, other specified; Y92.89 Other specified places as the place of occurrence of the external cause; Y99.8 Other external cause status; Z85.819 Personal history of malignant neoplasm of unspecified site of lip, oral cavity, and pharynx; Z79.899 Other long term (current) drug therapy; Z68.37 Body mass index [BMI] 37.0-37.9, adult; I25.2 Old myocardial infarction; Z80.8 Family history of malignant neoplasm of other organs or systems
CPT/HCPCS: 36415; 70450; 70480; 70551; 71045; 71250; 72125; 73700; 74176; 76705; 76775; 80048; 80053; 82105; 82550; 82728; 83690; 83735; 84484; 85007; 85025; 85027; 85610; 85730; 86704; 86706; 86708; 86803; 86850; 86900; 86901; 87040; 87081; 87340; 87426; 92928; 93005; 93306; 93458; 94640; 95819; 96365; 96366; 96375; 97116; 97163; 99152; 99153; C1874; C1887; C9113; G0378; J2250; J2543; Q9967

== ENCOUNTER 2022-04-22 10:19 | Inpatient (IN) | payer MEDICAID ==
[~2022-04-22] VITALS: Ht 170.2 cm; Wt 130.9 kg
[~2022-04-22 10:19] MED LIST changes: +ATOR20TA50 PO; +BUME1TAB3 PO; +FLUT110A IN; +METO-6 PO; +MID10T PO; +MYC15TP TOP; +NITR0.4S29 SL; +POTA10TA51 PO; +SERT50TA PO; +SPIR25TA PO; +SPIR50TA5 PO; +TICA90TA PO
[2022-04-22 11:23] LABS: Albumin 2.7 g/dL (3.4-5.0); BUN/Creatinine Ratio 22.8; Calcium 9.5 mg/dL (8.5-10.1); Magnesium 1.9 mg/dL (1.6-2.6); Potassium 4.1 mmol/L (3.5-5.1)
[2022-04-22 11:24] LABS: Lactic Acid w/Reflex 3.3 mmol/L (0.4-2.0)
[2022-04-22 11:26] LABS: Bilirubin, Total 1.1 mg/dL (0.2-1.0); Total Protein 6.7 g/dL (6.4-8.2)
[2022-04-22] MEDS ORDERED: FUROSEMIDE 100 MG/10ML VIAL IV ONE (11:30)
[2022-04-22 11:39] LABS: Hematocrit 45.6 % (41.0-53.0); Hemoglobin 14.2 g/dL (13.5-17.5); Mean Corpuscular Hemoglobin 26.3 pg (28.0-32.0); Mean Corpuscular Hgb Conc. 31.3 g/dL (32.0-36.0); Mean Corpuscular Volume 84.1 fL (80.0-100.0); Red Blood Cells 5.42 10^6/uL (4.5-5.90); White Blood Cell 20.3 10^3/uL (4.4-10.8)
[2022-04-22 11:40] LABS: Basophils % (manual) 0 (0.0-2.0); Blast Cells 0; Eosinophils % (manual) 0 (0-7); Metamyelocytes % 0; Myelocytes % 0; Promyelocytes % 0; Reactive Lymphocytes 0; Red Cell Distribution Width 20.3 % (11.8-14.3)
[2022-04-22] MEDS ORDERED: PIPERACILLIN-TAZOB 3.375GM 100 ML IV ONE (12:00)
[2022-04-22] MEDS ORDERED: HYDROcodone-ACET 5/325MG TAB PO ONE (12:00)
[2022-04-22 12:01] LABS: Band Neutrophils % (manual) 8; Lymphocytes % (manual) 3 (10.0-50.0); Monocytes % (manual) 5 (0-12)
[2022-04-22 12:29] LABS: Urine Bacteria NONE SEEN /hpf (None Seen); Urine Blood Negative /uL (Negative); Urine Hyaline Cast FEW /lpf (0 - 2); Urine Specific Gravity 1.015 (1.001-1.035); Urine WBC 1 /hpf (0 - 3)
[2022-04-22] MEDS ORDERED: DEXTROSE (50%) 50ML SYRG IV PRN (15:00)
[2022-04-22] MEDS ORDERED: DOCUSATE SOD 100 MG CAP PO PRN (15:00)
[2022-04-22] MEDS ORDERED: VANCOMYCIN PER PHARMACY 0 MG IV SCH (15:00)
[2022-04-22] MEDS ORDERED: MAALOX PLUS or MAALOX 30 ML PO PRN (15:00)
[2022-04-22] MEDS ORDERED: LORazepam 0.5 MG TAB PO PRN (15:00)
[2022-04-22] MEDS ORDERED: ACETAMINOPHEN 325 MG TAB PO PRN (15:00)
[2022-04-22] MEDS ORDERED: VANCOMYCIN 1GM/250ML 250 ML IV ONE (15:00)
[2022-04-22] MEDS ORDERED: ONDANSETRON HCL 4 MG/2 ML VIAL IV PRN (15:00)
[2022-04-22] MEDS ORDERED: fentaNYL CITRATE 100 MCG/2 ML VL IV ONE (15:00)
[2022-04-22] MEDS: BUMETANIDE 2.5mg/10ml (0.25 mg/ml) INJ IV SCH (16:01)
[2022-04-22] MEDS: ACCU-CHEK COMFORT CURVE STRIP VI SCH ×2 (16:07→21:07)
[2022-04-22] MEDS: InsuLIN REG 1unit/0.01ml Soln (100units/ml) SC SCH ×2 (16:11→21:07)
[2022-04-22] MEDS: HYDROcodone-ACET 5/325MG TAB PO PRN (20:22)
[2022-04-22] MEDS: TICAGRELOR 90 MG TAB PO SCH (21:58)
[2022-04-22] MEDS: PIPERACILLIN-TAZOB 3.375GM 100 ML IV SCH (21:58)
[2022-04-22] MEDS: traZODone HCL 50 MG TAB PO SCH ×2 (21:58→22:00)
[2022-04-23] MEDS: ACCU-CHEK COMFORT CURVE STRIP VI SCH ×6 (00:25→23:58)
[2022-04-23] MEDS: VANCOMYCIN 1GM/250ML 250 ML IV SCH ×2 (03:34→19:03)
[2022-04-23] MEDS: InsuLIN REG 1unit/0.01ml Soln (100units/ml) SC SCH ×6 (03:57→23:58)
[2022-04-23] MEDS: PIPERACILLIN-TAZOB 3.375GM 100 ML IV SCH ×2 (06:00→14:53)
[2022-04-23] MEDS: BUMETANIDE 2.5mg/10ml (0.25 mg/ml) INJ IV SCH ×2 (06:01→19:04)
[2022-04-23 06:44] LABS: Basophils # (auto) 0 10 ^3/uL (0-0.2); Eosinophils # (auto) 0 10 ^3/uL (0-0.8); Hemoglobin 10.1 g/dL (13.5-17.5); Lymphocytes # (auto) 0.5 10 ^3/uL (0.4-5.4)
[2022-04-23 06:46] LABS: Basophils % (auto) 0.2 % (0.0-2.0); Hematocrit 31.5 % (41.0-53.0); Lymphocytes % (auto) 2.5 % (10.0-50.0); Mean Corpuscular Hgb Conc. 32.1 g/dL (32.0-36.0); Mean Corpuscular Volume 84.1 fL (80.0-100.0); Monocytes # (auto) 0.8 10 ^3/uL (0-1.3); Neutrophils # (auto) 17.6 10 ^3/uL (1.6-8.6); Neutrophils % (auto) 93.3 % (37.0-80.0); Nucleated Red Blood Cells % 0.5 %; Red Blood Cells 3.74 10^6/uL (4.5-5.90); White Blood Cell 18.9 10^3/uL (4.4-10.8)
[2022-04-23 06:54] LABS: Red Cell Distribution Width 20.7 % (11.8-14.3)
[2022-04-23 07:03] LABS: Calcium 9.9 mg/dL (8.5-10.1); Potassium 3.8 mmol/L (3.5-5.1)
[2022-04-23] MEDS: ASPirin 81 mg TAB PO SCH (10:48)
[2022-04-23] MEDS: MIDODRINE HCL 10 MG TAB PO SCH (10:48)
[2022-04-23] MEDS: TICAGRELOR 90 MG TAB PO SCH (12:52)
[2022-04-23] MEDS: HYDROcodone-ACET 5/325MG TAB PO PRN (16:24)
[2022-04-24] MEDS: traZODone HCL 50 MG TAB PO SCH ×2 (00:08→21:53)
[2022-04-24] MEDS: MORPHINE SULFATE INJ 2 MG/ml SYRG IV PRN ×2 (00:18→21:52)
[2022-04-24] MEDS: TICAGRELOR 90 MG TAB PO SCH ×3 (00:25→21:53)
[2022-04-24] MEDS: PIPERACILLIN-TAZOB 3.375GM 100 ML IV SCH ×2 (00:26→20:00)
[2022-04-24] MEDS: ATORVASTATIN 20 MG TAB PO SCH ×2 (00:26→21:53)
[2022-04-24] MEDS: ACCU-CHEK COMFORT CURVE STRIP VI SCH ×6 (00:29→20:00)
[2022-04-24] MEDS: InsuLIN REG 1unit/0.01ml Soln (100units/ml) SC SCH ×6 (04:00→20:00)
[2022-04-24] MEDS: BUMETANIDE 2.5mg/10ml (0.25 mg/ml) INJ IV SCH ×3 (06:14→18:00)
[2022-04-24] MEDS: HYDROcodone-ACET 5/325MG TAB PO PRN (06:16)
[2022-04-24] MEDS: VANCOMYCIN 1GM/250ML 250 ML IV SCH ×2 (07:29→19:06)
[2022-04-24] MEDS ORDERED: PIPERACILLIN-TAZOB 3.375GM 100 ML IV SCH (08:30)
[2022-04-24 08:52] VITALS: BP 102/53
[2022-04-24 09:00] VITALS: BP 102/53
[2022-04-24] MEDS: ASPirin 81 mg TAB PO SCH (11:12)
[2022-04-24] MEDS: MIDODRINE HCL 10 MG TAB PO SCH (11:12)
[2022-04-24 12:56] VITALS: BP 106/39
[2022-04-24] MEDS ORDERED: FURO40TA4 PO (14:45)
[2022-04-24] MEDS ORDERED: ESCI-34 PO (14:45)
[2022-04-24] MEDS ORDERED: FAMO-12 PO (14:45)
[2022-04-24] MEDS ORDERED: CELE1CAP8 PO (14:45)
[2022-04-24] MEDS ORDERED: ALPRTAB PO (14:45)
[2022-04-24] MEDS ORDERED: GABA300C10 PO (14:45)
[2022-04-24 17:00] VITALS: BP 113/67
[2022-04-24 22:00] VITALS: BP 103/45
[2022-04-25] MEDS: HYDROcodone-ACET 5/325MG TAB PO PRN (01:46)
[2022-04-25] MEDS: ACCU-CHEK COMFORT CURVE STRIP VI SCH ×5 (04:00→16:24)
[2022-04-25] MEDS: InsuLIN REG 1unit/0.01ml Soln (100units/ml) SC SCH ×5 (04:00→16:00)
[2022-04-25] MEDS: PIPERACILLIN-TAZOB 3.375GM 100 ML IV SCH ×2 (04:52→12:15)
[2022-04-25 05:00] VITALS: BP 100/45
[2022-04-25] MEDS: BUMETANIDE 2.5mg/10ml (0.25 mg/ml) INJ IV SCH (05:49)
[2022-04-25 06:31] LABS: Hematocrit 29.7 % (41.0-53.0); Hemoglobin 9.1 g/dL (13.5-17.5); Mean Corpuscular Hemoglobin 26.1 pg (28.0-32.0); Mean Corpuscular Hgb Conc. 30.8 g/dL (32.0-36.0); Mean Corpuscular Volume 84.8 fL (80.0-100.0); White Blood Cell 20.6 10^3/uL (4.4-10.8)
[2022-04-25 06:40] LABS: Red Cell Distribution Width 20.2 % (11.8-14.3)
[2022-04-25 06:41] LABS: Basophils % (manual) 0 (0.0-2.0); Blast Cells 0; Eosinophils % (manual) 0 (0-7); Metamyelocytes % 0; Myelocytes % 0; Promyelocytes % 0; Reactive Lymphocytes 0
[2022-04-25 07:12] LABS: Potassium 4.4 mmol/L (3.5-5.1)
[2022-04-25 07:21] LABS: BUN/Creatinine Ratio 29.9; Magnesium 2.1 mg/dL (1.6-2.6)
[2022-04-25 07:48] LABS: Band Neutrophils % (manual) 3; Lymphocytes % (manual) 8 (10.0-50.0); Monocytes % (manual) 4 (0-12)
[2022-04-25 08:00] VITALS: BP 117/67
[2022-04-25] MEDS: VANCOMYCIN 1GM/250ML 250 ML IV SCH (08:39)
[2022-04-25] MEDS: TICAGRELOR 90 MG TAB PO SCH (09:59)
[2022-04-25] MEDS: MIDODRINE HCL 10 MG TAB PO SCH (09:59)
[2022-04-25] MEDS: ASPirin 81 mg TAB PO SCH (09:59)
[2022-04-25] MEDS ORDERED: SPIRONOLACTONE 25 MG TAB PO SCH (10:00)
[2022-04-25 12:00] VITALS: BP 120/66
[2022-04-25 16:00] VITALS: BP 122/81
[2022-04-25] MEDS ORDERED: SUCCINYLCHOLINE CHLORIDE 20 MG/ML 10ML VIAL IV ONE (17:43)
[2022-04-25] MEDS ORDERED: ROCURONIUM 10MG/ML 10ML VIAL IV ONE (17:43)
[2022-04-25] MEDS ORDERED: ETOMIDATE (2MG/ML) 20ML VIAL IV ONE (17:43)
[2022-04-25] MEDS ORDERED: EPINEPHrine HCL 0 ML IV ONE (17:54)
[2022-04-25] MEDS ORDERED: EPINEPHrine HCL 1 MG/10 ML SYRG IV ONE (21:34)
[2022-04-25] MEDS ORDERED: SODIUM BICARBONATE 8.4% INJ 50ML SYRINGE IV ONE (21:34)
== END 2022-04-25 21:35 | DRG 194 ==
LOC: EDBD 10:19 → ER 10:19 → TELE 15:00 → TELE-EAST 04-24 08:35
PROVIDERS: ADMIT Hospitalist; ATTEND Internal Medicine
PROC: 5A12012 Performance of Cardiac Output, Single, Manual (ICD-10-PCS; principal; 2022-04-25)
DX: I13.0 Hypertensive heart and chronic kidney disease with heart failure and stage 1 through stage 4 chronic kidney disease, or unspecified chronic kidney disease (principal); L03.115 Cellulitis of right lower limb; N17.9 Acute kidney failure, unspecified; E87.1 Hypo-osmolality and hyponatremia; E88.09 Other disorders of plasma-protein metabolism, not elsewhere classified; L03.116 Cellulitis of left lower limb; E11.22 Type 2 diabetes mellitus with diabetic chronic kidney disease; E11.51 Type 2 diabetes mellitus with diabetic peripheral angiopathy without gangrene; I50.23 Acute on chronic systolic (congestive) heart failure; E66.01 Morbid (severe) obesity due to excess calories; E78.5 Hyperlipidemia, unspecified; F17.210 Nicotine dependence, cigarettes, uncomplicated; I25.10 Atherosclerotic heart disease of native coronary artery without angina pectoris; J44.9 Chronic obstructive pulmonary disease, unspecified; Z95.5 Presence of coronary angioplasty implant and graft; R79.89 Other specified abnormal findings of blood chemistry; Z20.822 Contact with and (suspected) exposure to COVID-19; I25.5 Ischemic cardiomyopathy; N18.30 Chronic kidney disease, stage 3 unspecified; Z79.899 Other long term (current) drug therapy; Z80.8 Family history of malignant neoplasm of other organs or systems; Z85.819 Personal history of malignant neoplasm of unspecified site of lip, oral cavity, and pharynx; Z68.42 Body mass index [BMI] 45.0-49.9, adult
CPT/HCPCS: 36415; 71045; 80048; 80053; 80202; 81001; 82962; 83605; 83735; 83880; 84484; 85007; 85025; 85027; 87040; 87081; 87426; 92950; 93005; 93970; 96365; 96366; 96375; 99291; G0378; J0171; J0330; J1815; J2405; J2543